=== PATIENT | male | born 1950 | race Caucasian/White ===

== ENCOUNTER 2017-11-03 05:41 | Outpatient (CLI) | payer OTHER ==
[~2017-11-03] VITALS: Ht 175.3 cm; Wt 82.6 kg
[~2017-11-03 05:41] MED LIST: ASP81CT PO; ASPI-999 PO; AZIT250T12 PO; BENZ200C51 PO; BISO1TAB39 PO; CHOLESTEROL MED?; CLOP75TA69 PO; CLPD75T PO; COUMADIN; GUAI600T43 PO; HYDR-3820 PO; HYDR-508 PO; HYDR-623 PO; LOVA10TA PO; METO-395 PO; MTP100TCR PO; NFR150C PO; NIA500ERT PO; OMEG1CAP51 PO; PRAV20TA PO; PRAV40TA2 PO; SENN-20 PO; SIMV40TA2 PO; WARF2.5T PO; ZIAC
[2017-11-03] MEDS ORDERED: ATOR40TA70 PO (14:39)
== END 2017-11-03 14:43 ==
LOC: PREOP 05:41
PROVIDERS: ATTEND Surgery
DX: Z01.818 Encounter for other preprocedural examination (principal); Z12.11 Encounter for screening for malignant neoplasm of colon

== ENCOUNTER 2017-11-10 07:28 | Day surgery (SDC) | payer MEDICARE, OTHER ==
[~2017-11-10] VITALS: Ht 175.3 cm; Wt 82.6 kg
[~2017-11-10 07:28] MED LIST changes: +ATOR40TA70 PO
[2017-11-10] MEDS ORDERED: NS IV 500 ML 500 ML ONE (07:43)
[2017-11-10] MEDS ORDERED: NS IV 500 ML 500 ML IV PRN (07:57)
[2017-11-10 08:02] VITALS: BP 144/96
--- NOTE | 2017-11-10 08:49 | Conscious Sedation/ASA ---
Conscious Sedation Pre-Proced Time Reviewed: 08:49 ASA Class: 2 Airway Mallampati Classification: ([place] appropriate class) I. II. III, IV Lungs Heart ASA score ASA 1: a normal healthy patient ASA 2: a patient with a mild systemic disease (mid diabetes, controlled hypertension, obesity ASA 3: a patient with a severe systemic disease that limits activity (angina , COPD, prior Myocardial infarction) ASA 4: a patient with an incapacitating disease that is a constant threat to life (CHF, renal failure) ASA 5: a moribund patient not expected to survive 24 hrs. (ruptured aneurysm) ASA 6: a declared brain patient whose organs are being harvested. For emergent operations, add the letter E after the classification Grade 1 Sedation Plan: Discussed options with patient/fam Note The patient is an appropriate candidate to undergo the planned procedure, sedation, and anesthesia. The patient immediately re-assessed prior to indication. CARL FRAZIER MD Nov 10, 2017 8:49 am
--- NOTE | 2017-11-10 08:49 | History & Physicial ---
History of Present Illness History of Present Illness Reason for visit/HPI to undergo screening colonoscopy Date of Admission 11/10/17 Date Seen by Provider: Nov 10, 2017 Time Seen by Provider: 08:47 I consulted on this patient on 11/10/17 08:47 Attending Physician Carl Veloz MD Admitting Physician Star Beck MD Consult Allergies and Home Medications Allergies Coded Allergies: No Known Drug Allergies (Unverified , 01/30/11) Home Medications Aspirin 81 Mg Tab.chew, 81 MG PO DAILY, (Reported) Atorvastatin Calcium 40 Mg Tablet, 40 MG PO DAILY, (Reported) Clopidogrel Bisulfate 75 Mg Tablet, 75 MG PO Q48 HOURS, (Reported) Metoprolol Succinate 100 Mg Tab.er.24h, 100 MG PO DAILY, (Reported) Past Xcfcxov-Pqbuaf-Ebvpra Hx Patient Social History Marrital Status: Employed/Student: employed Alcohol Use: Occasionally Uses Number of Drinks Today: AA Alcohol Beverage of Choice: Beer Recreational Drug Use: No Smoking Status: Former Smoker Former Smoker, Quit: Nov 03, 2003 Type Used: Cigarettes Recent Foreign Travel: No Contact w/other who traveled: No Recent Hopitalizations: No Recent Infectious Disease Expo: No Immunizations Up To Date Tetanus Booster (TDap): Unknown Date of Influenza Vaccine: Jun 29, 2017 Seasonal Allergies Seasonal Allergies: Yes (Cats) Surgeries Yes Cardiac, Coronary Stent, Joint Replacement, Orthopedic Respiratory No Currently Using CPAP: No Currently Using BIPAP: No Cardiovascular Yes Chronic Edema/Swelling, Heart Attack, Hypertension Neurological No Reproductive System Hx Reproductive Disorders: No Sexually Transmitted Disease: No HIV/AIDS: No Genitourinary No Gastrointestinal No Musculoskeletal Yes Arthritis HEENT History of HEENT Disorders: No Cancer No Psychosocial History of Psychiatric Problem: No Blood Transfusions Adverse Reaction to a Blood Tr: No Family Medical History Family Hx: Arthritis 03 FATHER 03 MOTHER Cancer 03 FATHER (lung cancer) 09 BROTHER Respiratory disorder 03 FATHER Constitutional: no symptoms reported EENTM: no symptoms reported Respiratory: no symptoms reported Gastrointestinal: no symptoms reported Genitourinary: no symptoms reported Musculoskeletal: joint pain Skin: no symptoms reported Psychiatric/Neurological: No Symptoms Reported Physical Exam Vital Signs Vital Signs - First Documented 11/10/17 08:02 Temp 98.0 Pulse 104 Resp 18 B/P (MAP) 144/96 (112) Pulse Ox 95 O2 Delivery Room Air Capillary Refill : General Appearance: No Apparent Distress Neck: Normal Inspection Respiratory: Lungs Clear Cardiovascular: Regular Rate, Rhythm Gastrointestinal: Non Tender, Soft Rectal: Deferred Back: Normal Inspection Neurologic/Psychiatric: Alert, Oriented x3 Skin: Warm/Dry Assessment/Plan Assessment and Plan gentleman here to undergo screening colonoscopy. Discussed in detail. Problems: CARL VELOZ MD Nov 10, 2017 8:49 am
[2017-11-10] MEDS ORDERED: MIDAZOLAM 2 MG/2 ML (VERSED) VIAL ONE ×3 (09:06)
[2017-11-10] MEDS ORDERED: fentaNYL INJECTION 100 MCG/2 ML AMP ONE (09:06)
[2017-11-10] MEDS: fentaNYL INJECTION 100 MCG/2 ML AMP IVP PRN ×2 (09:15→09:25)
[2017-11-10] MEDS: MIDAZOLAM 2 MG/2 ML (VERSED) VIAL IVP PRN ×2 (09:20→09:27)
--- NOTE | 2017-11-10 09:42 | Endo Procedure Record ---
Endo Procedure Report Date of Procedure Last Colonoscopy: Yes (unsure) Nov 10, 2017 Surgeon (s) CARL FRAZIER MD Post Procedure/Op Diagnosis Normal colonoscopy Procedure Performed Colonoscopy to cecum Description of Procedure Anesthesia Type: Conscious Sedation Specimen(s) collected/removed none Description of the Procedure Indication for procedure: This gentleman came in for screening colonoscopy. Informed consent was obtained after reviewing the procedure in detail. Description of the procedure: He was placed in left lateral decubitus position and his vital signs were monitored. Conscious sedation was achieved using Versed and fentanyl.digital rectal examination was unremarkable. The colonoscope was then introduced into the rectum and advanced all the way up to the cecum. The quality of bowel preparation was rather sub-optimal. I was however able to suction liquid stools and complete the examination. The scope was withdrawn slowly and the mucosa examined in a systematic fashion. There was no abnormality He tolerated the procedure well and was taken back to the nursing area in a stable condition. Impression: Normal screening colonoscopy. Recommend repeating cutaneous. Copies To: IBIS SPANN MD, XAVIER M MD Nov 10, 2017 9:42 am
--- NOTE | 2017-11-10 09:43 | Discharge Inst-Simple/Standard ---
Discharge Inst-Standard Discharge Medications New, Converted or Re-Newed RX: Other Patient Instructions/Follow Up Plan of Care/Instructions/FU: Repeat colonoscopy in 10 years Activity as Tolerated: Yes Discharge Diet: No Restrictions CARL FRAIZER MD Nov 10, 2017 9:43 am
[2017-11-10 09:45] VITALS: BP 135/76
[2017-11-10 10:10] VITALS: BP 134/91
[2017-11-10 11:10] VITALS: BP 134/91
== END 2017-11-10 11:10 | disposition home or self-care (01) ==
LOC: ENDO 07:28
PROVIDERS: ATTEND Surgery
DX: Z12.11 Encounter for screening for malignant neoplasm of colon (principal); Z87.891 Personal history of nicotine dependence; Z95.5 Presence of coronary angioplasty implant and graft; I10 Essential (primary) hypertension; I25.2 Old myocardial infarction; Z79.899 Other long term (current) drug therapy; Z79.82 Long term (current) use of aspirin

== ENCOUNTER 2018-04-23 08:33 | Outpatient (RCR) | payer OTHER | END 2018-05-13 | disposition home or self-care (01) | PROVIDERS: ATTEND Family Medicine | DX: M54.5 Low back pain (principal) ==

== ENCOUNTER → 2018-07-09 | Outpatient (CLI) | payer OTHER ==
[~2018-07-09] VITALS: Ht 175.3 cm; Wt 87.5 kg
[~2018-07-09] MED LIST changes: +CATHETER FLUSH 10 ML SYR IV PRN; +REGADENOSON 0.4 MG/5 ML SYR (LEXISCAN) IV ONE
[2018-07-09 09:09] VITALS: BP 129/77
--- NOTE | 2018-07-09 13:28 | STRESS TEST ---
DATE OF SERVICE: 07/09/2018 RESTING AND POST REGADENOSON TECHNETIUM-99M TETROFOSMIN SPECT CT IMAGING CLINICAL DIAGNOSIS: Coronary artery disease. ORDERING PHYSICIAN: Ronit Vaca APRN PRIMARY PHYSICIAN: Dr. Star Beck. Baseline images were carried out after injection of 10.08 mCi of technetium-99m tetrofosmin. This was followed by 0.4 mg of regadenoson and 29.5 mCi of technetium-99m tetrofosmin for stress imaging. The electrocardiogram showed sinus rhythm with right bundle branch block. The electrocardiogram did not change during the study. Rare isolated premature ventricular contractions were seen. The patient tolerated the procedure well. Review of images at rest and following stress does not indicate any significant perfusion defects consistent with significant myocardial ischemia or infarction. Gated images show normal global left ventricular systolic function with normal regional wall motion. Left ventricular ejection fraction is calculated to be 65%. Left ventricular end diastolic volume is 58 mL. TID is absent (1.15). CONCLUSIONS: 1. No evidence of any significant myocardial ischemia or infarction on this study. 2. Normal regional wall motion. 3. Normal global left ventricular systolic function with a calculated ejection fraction of 65%. 4. Right bundle branch block on electrocardiogram. Job ID: [id number] DocumentID: [id number] Dictated Date: 07/09/2018 13:11:52 Cloth Desizing Range Tender Date: 07/09/2018 13:27:23 Dictated By: HUNG MORALES MD, MA, FACP, FACC,
== END ==
LOC: CARD 07:01
PROVIDERS: ATTEND Nurse Practitioner Family
DX: I25.10 Atherosclerotic heart disease of native coronary artery without angina pectoris (principal); I10 Essential (primary) hypertension; E78.5 Hyperlipidemia, unspecified; I45.10 Unspecified right bundle-branch block
CPT/HCPCS: 78452; 93017

== ENCOUNTER → 2020-06-15 | Outpatient (CLI) | payer OTHER ==
[~2020-06-15] MED LIST changes: +ACHYD1T PO; -CATHETER FLUSH 10 ML SYR IV PRN; -HYDR-3820 PO; -METO-395 PO; -REGADENOSON 0.4 MG/5 ML SYR (LEXISCAN) IV ONE
--- NOTE | 2020-06-15 11:02 | Diagnostic Imaging Report ---
EXAMINATION: Magnetic resonance imaging of the right shoulder without contrast. DATE: June 15, 2020. COMPARISON: None. HISTORY: 70-year-old male, right shoulder pain from lifting. TECHNIQUE: Magnetic Resonance Imaging sequences were performed of the shoulder without contrast. FINDINGS: ROTATOR CUFF, LIGAMENTS, TENDONS, AND MUSCLES: There is a 16 mm wide full-thickness tear of the supraspinatus tendon with the tear measuring 12 mm in medial to lateral extent. There is severe infraspinatus tendinopathy. The teres minor tendon is intact. There is subscapularis tendinopathy. There is an interstitial split tear of the subscapularis tendon. There is normal rotator cuff muscle bulk and signal. LONG HEAD OF BICEPS: The long head of biceps tendon is perched on the lesser tuberosity. The long head of biceps tendon is otherwise intact. There is fluid in the biceps tendon sheath which is disproportional to the amount of glenohumeral joint fluid consistent with tenosynovitis. GLENOHUMERAL JOINT: The humeral head is well positioned relative to the glenoid. The labrum is grossly intact. There is no identified paralabral cyst. The articular cartilage is grossly intact. There is no joint effusion. ACROMIOCLAVICULAR JOINT: The acromioclavicular joint is normally aligned. The coracoclavicular and coracoacromial ligaments are intact. There are mild acromioclavicular degenerative changes without undersurface osteophyte. BONE: There is no os acromiale. There is no acute fracture, bone contusion, or evidence of osteonecrosis. BURSAE AND SOFT TISSUES: There is fluid in the subacromial subdeltoid bursa consistent with the full-thickness rotator cuff tendon tear, bursitis, and/or recent injection. IMPRESSION: 1. Supraspinatus tendinopathy with 16 mm wide full-thickness tear of the supraspinatus tendon with tendon retraction of 12 mm. Severe infraspinatus tendinopathy. There is subscapularis tendinopathy and an interstitial split tear of the subscapularis tendon. No fatty muscle atrophy. 2. Mild acromioclavicular degenerative changes without undersurface osteophyte. 3. The long head of biceps tendon is perched on the lesser tuberosity and otherwise is intact. There is prominent fluid in the biceps tendon sheath disproportional to the amount of glenohumeral joint fluid suggesting tenosynovitis. 4. Grossly intact labrum and unremarkable additional glenohumeral joint evaluation. 5. No acute fracture, bone contusion, or evidence of osteonecrosis. 6. Fluid in the subacromial subdeltoid bursa consistent with full-thickness rotator cuff tendon tear, bursitis, and/or recent injection. Dictated by: Dictated on workstation # [id number]
== END ==
LOC: RAD 08:00
PROVIDERS: ATTEND Family Medicine
DX: S46.011A Strain of muscle(s) and tendon(s) of the rotator cuff of right shoulder, initial encounter (principal); M67.813 Other specified disorders of tendon, right shoulder; M19.011 Primary osteoarthritis, right shoulder; X50.0XXA Overexertion from strenuous movement or load, initial encounter
CPT/HCPCS: 73221

== ENCOUNTER → 2020-07-25 | Outpatient (CLI) | payer OTHER ==
[~2020-07-25] VITALS: Ht 175 cm; Wt 88.0 kg
[~2020-07-25] MED LIST changes: +REGADENOSON 0.4 MG/5 ML SYR (LEXISCAN) IV ONE
[2020-07-25] MEDS: CATHETER FLUSH 10 ML SYR IV PRN ×2 (07:54→09:08)
[2020-07-25 09:07] VITALS: BP 158/82
--- NOTE | 2020-07-25 14:21 | STRESS TEST ---
DATE OF SERVICE: 07/26/2020 RESTING AND POST REGADENOSON TECHNETIUM-99M TETROFOSMIN SPECT CT IMAGING ORDERING PHYSICIAN: Dr. Fuentes. PRIMARY PHYSICIAN: Dr. Beck. CLINICAL DIAGNOSES: Coronary artery disease. Baseline images were carried out after injection of 10.47 mCi of technetium-99m Tetrofosmin. This was followed by 0.4 mg regadenoson and 31.6 mCi of technetium-99m Tetrofosmin for stress imaging. The electrocardiogram shows sinus rhythm with right bundle branch block. The electrocardiogram did not change significantly with the regadenoson infusion. The patient tolerated the procedure well. Review of images at rest and following stress does not indicate any significant perfusion defects consistent with significant myocardial ischemia or infarction. Gated images show normal global left ventricular systolic function, normal regional wall motion. Left ventricular ejection fraction is calculated to be 62%. Left ventricular end diastolic volume is 69 mL. TID is absent (0.98). CONCLUSIONS: 1. No evidence of significant myocardial ischemia or infarction on this study. 2. Normal regional wall motion. 3. Normal global left ventricular systolic function with a calculated ejection fraction of 62%. Job ID: [id number] DocumentID: [id number] Dictated Date: 07/25/2020 12:01:43 [place] Strip Gauger Date: 07/25/2020 14:20:59 Dictated By: HUNG FUENTES MD, MA, FACP, FACC,
== END ==
LOC: CARD 07:33
PROVIDERS: ATTEND Internal Medicine Cardiovascular Disease
DX: I25.10 Atherosclerotic heart disease of native coronary artery without angina pectoris (principal); E78.5 Hyperlipidemia, unspecified; I10 Essential (primary) hypertension; I45.10 Unspecified right bundle-branch block; I65.29 Occlusion and stenosis of unspecified carotid artery
CPT/HCPCS: 78452; 93017; A9502

== ENCOUNTER 2020-10-06 13:33 | Outpatient (RCR) | payer OTHER ==
[~2020-10-06 13:33] MED LIST changes: -REGADENOSON 0.4 MG/5 ML SYR (LEXISCAN) IV ONE
== END 2020-11-21 | disposition home or self-care (01) ==
PROVIDERS: ATTEND Nurse Practitioner Family
DX: S46.011D Strain of muscle(s) and tendon(s) of the rotator cuff of right shoulder, subsequent encounter (principal); Z98.890 Other specified postprocedural states

== ENCOUNTER 2022-01-24 06:41 | Outpatient (CLI) | payer OTHER ==
[~2022-01-24] VITALS: Ht 175.3 cm; Wt 83.9 kg
[2022-01-24] MEDS ORDERED: FLUT9.9S NS (12:52)
== END 2022-01-24 13:06 | disposition home or self-care (01) ==
LOC: PREOP 06:41
PROVIDERS: ATTEND Internal Medicine
DX: Z01.818 Encounter for other preprocedural examination (principal)

== ENCOUNTER 2022-02-01 09:16 | Day surgery (SDC) | payer OTHER ==
--- NOTE | 2022-01-24 06:48 | HISTORY AND PHYSICAL ---
DATE OF SERVICE: COLONOSCOPY HISTORY AND PHYSICAL DATE OF ADMISSION: . HISTORY OF PRESENT ILLNESS: The patient is a 71-year-old white male referred by Dr. Beck for screening colonoscopy. He last accomplished screening colonoscopy five years ago per Dr. Veloz. On review of the report, the prep was suboptimal. No evidence for neoplasia again under suboptimal conditions was noted. He is deemed to be of average risk. He is not aware of any family history for colon cancer or any polyposis syndrome. She denies bright red blood per rectum, melena, change in bowel habit, change in weight or abdominal pain. PAST MEDICAL HISTORY: Significant for coronary artery disease. He had what he reports was a small heart attack in 2016, at which time he had two stents placed. He has had no problems since, on aspirin alone for antiplatelet therapy 81 mg. He has a history of hyperlipidemia and hypertension. MEDICATIONS ON ADMISSION: Include metoprolol ER 100 mg daily, atorvastatin 40 mg daily, 81 mg aspirin daily, and 1000 mg of fish oil daily. PAST SURGICAL HISTORY: He has had bilateral total knee replacements a number of years ago and bilateral shoulder surgery, not replacement related. FAMILY HISTORY: Mother living at age of 92, lung cancer survivor. Father at the age of 93 the patient reports as far as he knows natural causes passed in his sleep at night. SOCIAL HISTORY: He has a past 10 to 85-hejz-igpa smoking history, but quit 25 years ago. Reports three beers most days of the week is only form of alcohol consumption reported. REVIEW OF SYSTEMS: CONSTITUTIONAL: Denies night sweats, chills, fever, change in weight. PULMONARY: Denies cough, wheezing or shortness of breath. CARDIOVASCULAR: Denies chest discomfort, orthopnea, PND, pedal edema or syncope. GASTROINTESTINAL: As noted in the HPI. PHYSICAL EXAMINATION: GENERAL: Reveals a well-appearing white male in no acute distress. VITAL SIGNS: Weight 188 pounds and blood pressure 126/82. HEENT: Unremarkable. Sclerae nonicteric. CHEST: Clear to auscultation. CARDIOVASCULAR: Reveals a regular rate and rhythm without murmur, S3 or S4. ABDOMEN: Soft, supple without mass, organomegaly or tenderness. EXTREMITIES: Reveal no cyanosis, clubbing or edema. RECTAL: Deferred at the time of colonoscopy. ASSESSMENT AND PLAN: The patient has been set up for screening colonoscopy. Prep instructions with the Suprep kit were given and questions were answered. I thank you for the referral of this pleasant gentleman. He was advised to abstain from aspirin one week prior to the procedure and continue his other medications unchanged. Job ID: [id number] DocumentID: [id number] Dictated Date: 01/23/2022 16:25:58 Scaffold Builder Date: 01/23/2022 16:36:13 Dictated By: ZHENG CAVANAUGH MD MTDD
[~2022-02-01] VITALS: Ht 175.3 cm; Wt 83.9 kg
[~2022-02-01 09:16] MED LIST changes: +FLUT9.9S NS
[2022-02-01] MEDS ORDERED: LACTATED RINGERS 1,000 ML IV STA (09:45)
[2022-02-01 09:55] VITALS: BP 134/81
[2022-02-01] MEDS ORDERED: LACTATED RINGERS 1,000 ML IV ONE (10:02)
[2022-02-01] MEDS ORDERED: OMG1KC PO (10:03)
--- NOTE | 2022-02-01 10:08 | Pre-Op Note & Conscious Sedat ---
Pre-Operative Progress Note H&P Reviewed The H&P was reviewed, patient examined and no changes noted. Date H&P Reviewed: February 01, 2022 Time H&P Reviewed: 10:08 Conscious Sedation Pre-Proced ASA Score 2 For ASA 3 and 4: Consider anesthesia and medical clearance. Also, for patients with a history of failed moderate sedation consider anesthesia. Airway Lungs Heart ASA score ASA 1: a normal healthy patient ASA 2: a patient with a mild systemic disease (mid diabetes, controlled hypertension, obesity ASA 3: a patient with a severe systemic disease that limits activity (angina, COPD, prior Myocardial infarction) ASA 4: a patient with an incapacitating disease that is a constant threat to life (CHF, renal failure) ASA 5: a moribund patient not expected to survive 24 hrs. (ruptured aneurysm) ASA 6: a declared brain- patient whose organs are being harvested. For emergent operations, add the letter E after the classification Mallampati Classification Grade 2 Sedation Plan Analgesia, Amnesia, Plan communicated to team members, Discussed options with patient/fam, Discussed risks with patient/fam The patient is an appropriate candidate to undergo the planned procedure, sedation, and anesthesia. The patient immediately re-assessed prior to indication. ZHENG CAVANAUGH MD February 01, 2022 10:08
[2022-02-01] MEDS ORDERED: PROPOFOL INJECTION 50 ML IV ONE (11:05)
[2022-02-01] MEDS ORDERED: MIDAZOLAM 2 MG/2 ML (VERSED) VIAL ONE (11:05)
[2022-02-01 11:30] VITALS: BP 91/60
[2022-02-01 11:35] VITALS: BP 93/56
[2022-02-01 11:40] VITALS: BP 92/55
[2022-02-01 11:45] VITALS: BP 92/55
[2022-02-01 11:58] VITALS: BP 99/60
--- NOTE | 2022-02-01 14:45 | Anesthesia-General Post-Op ---
MAC Patient Condition Mental Status/LOC: Same as Preop Cardiovascular: Satisfactory Nausea/Vomiting: Absent Respiratory: Satisfactory Pain: Controlled Complications: Absent Post Op Complications Complications None Follow Up Care/Instructions Patient Instructions None needed. Anesthesiology Discharge Order Discharge Order Patient is doing well, no complaints, stable vital signs, no apparent adverse anesthesia problems. No complications reported per nursing. LIZET JAFFE CRNA February 01, 2022 14:45
--- NOTE | 2022-02-01 18:09 | OPERATIVE REPORT ---
DATE OF SERVICE: COLONOSCOPY SUMMARY INDICATION FOR PROCEDURE: Screening colonoscopy. DESCRIPTION OF PROCEDURE: The patient was placed in the left lateral decubitus position. Prior to undergoing colonoscopy, digital rectal evaluation was performed. Anal sphincter tone was normal and the perianal reflexes intact. Prostate is mildly enlarged and anodular on digital inspection. No other abnormalities were noted on digital inspection of anal canal or distal rectal vault. The colonoscope was then inserted into the rectum and under direct visualization advanced to cecum. The cecum was identified by identification of ileocecal valve and cecal strap. Photographic documentation was obtained. Quality of prep was good. FINDINGS: There was no evidence for internal or external hemorrhoids. Present in the mid rectum was a diminutive hyperplastic-appearing polyp. It was biopsied and removed via cold forceps as it was on top of the vein. The remainder of the rectum was unremarkable. Mild sigmoid diverticular disease is present without evidence for diverticulitis. No other sigmoid colonic abnormalities were appreciated. The descending colon, splenic flexure, transverse colon, hepatic flexure and ascending colon were unremarkable. Two sessile cecal polyps, one 3 mm and the other one 3 x 6 mm was noted. Both were ablated with hot forceps with no subsequent blood loss. ASSESSMENT: Three sessile polyps were removed today as noted above, two from the cecum and one from the mid rectum. As long as there is no surprise on histopathology report, would advocate consideration for repeat surveillance colonoscopy in 5 years. Mild diverticular disease confined to the sigmoid colon was present and digital evaluation of the prostate was compatible with mild BPH. CC: Star Beck MD - requested, unable to deliver. Job ID: [id number] DocumentID: [id number] Dictated Date: 02/01/2022 11:34:41 Grab Setter Date: 02/01/2022 18:08:20 Dictated By: ZHENG CAVANAUGH MD
== END 2022-02-01 12:10 | disposition home or self-care (01) ==
LOC: ENDO 09:16
PROVIDERS: ATTEND Internal Medicine
DX: Z12.11 Encounter for screening for malignant neoplasm of colon (principal); D12.8 Benign neoplasm of rectum; K63.5 Polyp of colon; N40.0 Benign prostatic hyperplasia without lower urinary tract symptoms; K57.30 Diverticulosis of large intestine without perforation or abscess without bleeding; Z95.5 Presence of coronary angioplasty implant and graft; Z79.82 Long term (current) use of aspirin; Z87.891 Personal history of nicotine dependence
CPT/HCPCS: 88305

== ENCOUNTER → 2022-08-08 | Outpatient (CLI) | payer BC, OTHER ==
[~2022-08-08] MED LIST changes: +OMG1KC PO
[2022-08-08 07:53] LABS: BASOPHILS # (AUTO) 0.1 10^3/uL (0.0-0.1); BASOPHILS % (AUTO) 1 % (0-10); EOSINOPHILS # (AUTO) 0.6 10^3/uL (0.0-0.3); EOSINOPHILS % (AUTO) 7 % (0-10); HEMATOCRIT 43 % (40-54); HEMOGLOBIN 14.4 g/dL (13.3-17.7); LYMPHOCYTES # (AUTO) 2.2 10^3/uL (1.0-4.0); LYMPHOCYTES % (AUTO) 28 % (12-44); MEAN CORPUSCULAR HEMOGLOBIN 32 pg (25-34); MEAN CORPUSCULAR HGB CONC 34 g/dL (32-36); MEAN CORPUSCULAR VOLUME 94 fL (80-99); MEAN PLATELET VOLUME 10.8 fL (9.0-12.2); MONOCYTES # (AUTO) 0.6 10^3/uL (0.0-1.0); MONOCYTES % (AUTO) 7 % (0-12); NEUTROPHILS # (AUTO) 4.3 10^3/uL (1.8-7.8); NEUTROPHILS % (AUTO) 56 % (42-75); PLATELET COUNT 174 10^3/uL (130-400); WHITE BLOOD COUNT 7.7 10^3/uL (4.3-11.0)
[2022-08-08 08:11] LABS: POTASSIUM 4.3 MMOL/L (3.6-5.0)
[2022-08-08 08:12] LABS: ALBUMIN 4.2 GM/DL (3.2-4.5)
[2022-08-08 08:13] LABS: CALCIUM 9.4 MG/DL (8.5-10.1)
[2022-08-08 08:16] LABS: BILIRUBIN,TOTAL 0.9 MG/DL (0.1-1.0)
[2022-08-08 08:18] LABS: CREATININE SERUM 1.07 MG/DL (0.60-1.30)
== END ==
LOC: LAB 07:31
PROVIDERS: ATTEND Family Medicine
DX: Z00.01 Encounter for general adult medical examination with abnormal findings (principal); E78.5 Hyperlipidemia, unspecified
CPT/HCPCS: 36415; 80053; 80061; 85025

== ENCOUNTER → 2023-07-01 | Outpatient (CLI) | payer BC ==
[~2023-07-01] MED LIST changes: +CATHETER FLUSH 10 ML SYR IVP PRN; +CLOP-31 PO; -CLOP75TA69 PO; +REGADENOSON 0.4 MG/5 ML SYR IV ONE
[2023-07-01 09:33] VITALS: BP 157/84
--- NOTE | 2023-07-01 20:52 | STRESS TEST ---
DATE OF SERVICE: 07/01/2023 RESTING AND POST REGADENOSON TECHNETIUM-99M TETROFOSMIN SPECT CT IMAGING ORDERING PHYSICIAN: Ronit Vaca APRN. PRIMARY PHYSICIAN: Dr. Star Beck. CLINICAL DIAGNOSIS: Coronary artery disease. Baseline images were carried out after injection of 10.73 mCi of technetium-99m tetrofosmin. This was followed by 0.4 mg regadenoson and 30.6 mCi of technetium-99m tetrofosmin for stress imaging. The electrocardiogram showed sinus rhythm with right bundle branch block. It did not change significantly with the regadenoson infusion. The patient tolerated the procedure well. Review of images at rest and following stress does not indicate any perfusion defects consistent with significant myocardial ischemia or infarction. Gated images show normal regional wall motion. Left ventricular ejection fraction is calculated to be 65%. CONCLUSIONS: 1. No evidence of any significant myocardial ischemia or infarction on this study. 2. Normal regional wall motion. 3. Normal global left ventricular systolic function with a calculated ejection fraction of 65%. Job ID: [id number] DocumentID: [id number] Dictated Date: 07/01/2023 15:43:22 Bag Press Operator Date: 07/01/2023 20:50:00 Dictated By: HUNG MORALES MD; MA; FACP; FACC;
== END ==
LOC: CARD 08:04
PROVIDERS: ATTEND Nurse Practitioner Family
DX: I25.10 Atherosclerotic heart disease of native coronary artery without angina pectoris (principal)
CPT/HCPCS: 78452; 93017; A9502